=== PATIENT | female | born 1995 | race Caucasian/White ===

== ENCOUNTER 2017-12-27 16:52 | Emergency (ER) | payer OTHER, MEDICAID ==
--- NOTE | 2017-12-27 17:36 | EDPHY ---
H & P Stated Complaint: n/v/d Time Seen by Provider: 12/27/17 17:36 - Personal History LMP (Females 10-55): 8-14 Days Ago Current Tetanus/Diphtheria Vaccine: Yes Current Tetanus Diphtheria and Acellular Pertussis (TDAP): Yes - Medical/Surgical History Hx Asthma: No Hx Chronic Respiratory Disease: No Hx Diabetes: No Hx Cardiac Disease: No Hx Renal Disease: No Hx Cirrhosis: No Hx Alcoholism: No Hx HIV/AIDS: No Hx Splenectomy or Spleen Trauma: No Other PMH: ADHD, L foot surgery, - Social History Smoking Status: Never smoked Constitutional: Initial Vital Signs Temperature (C) 37.8 C 12/27/17 17:00 Heart Rate 97 12/27/17 17:00 Respiratory Rate 18 12/27/17 17:00 Blood Pressure 113/58 L 12/27/17 17:00 O2 Sat (%) 97 12/27/17 17:00 O2 Delivery Mode Room Air Allergies/Adverse Reactions: No Known Allergies Allergy (Unverified 12/27/17 17:00) Home Medications: Medication Instructions Recorded Leonor 12/27/17 Medical Decision Making ED Course/Re-evaluation: CHIEF COMPLAINT: Nausea vomiting diarrhea HISTORY OF PRESENT ILLNESS: Healthy 22-year-old female who has had 3 days worth of worsening nausea vomiting diarrhea. She did have a glucose tolerance test today before she got sick and sometimes she feels a bit ill the day of that test. The test was normal and she usually feels better the next day. She has had before. This time she had progressive nausea vomiting diarrhea. She has not been able to take in many calories and she feels dehydrated. She denies any urinary symptoms. She has some mild back pain but she thinks that may be from fever and diarrhea. She is generally quite healthy. She has no drug allergies. REVIEW OF SYSTEMS: A 10 point review of systems was performed and is negative with the exception of the elements mentioned in the history of present illness. PHYSICAL EXAM: HR, BP, O2 Sat, RR. Temp noted General Appearance: Alert, poorly hydrated mucous membranes, appropriate, and non-toxic appearing. Head: Atraumatic without scalp tenderness or obvious injury Eyes: Pupils equal, round, reactive to light and accommodation, EOMI, no trauma , no injection. Ears: Clear bilaterally, no perforation, normal landmarks Nose: Atraumatic, no rhinorrhea, clear. Throat: There is no erythema or exudates, no lesions, normal tonsils, mucus membranes moist. Neck: Supple, 2+ carotid upstroke, nontender, no lymphadenopathy. Respiratory: No retractions, no distress, no wheezes, and no accessory muscle use. Lungs are clear to auscultation bilaterally. Cardiovascular: Regular rate and rhythm, no murmurs, rubs, or gallops. Bilateral carotid, radial, dorsalis pedis, and posterior tibial pulses intact. Good capillary refill all extremities. Gastrointestinal: Abdomen is soft, nontender, non-distended, no masses, no rebound, no guarding, no peritoneal signs. Musculoskeletal: Normal active ROM of all extremities, atraumatic. Neurological: Alert, appropriate, and interactive. The patient has normal DTRs and non-focal cranial nerves, motor, sensory, and cerebellar exam. Skin: No rashes, good turgor, no nodules on palpation. Past medical history: None Past surgical history: None Family history: Noncontributory Social history: 22-year-old female who is a student, not , employed, does not abuse tobacco drugs or alcohol DIFFERENTIAL DIAGNOSIS: The differential diagnosis for the patient's nausea and vomiting included but was not limited to gastroenteritis, gastritis, appendicitis, and medication side effect. MEDICAL DECISION MAKING: This patient has nausea vomiting diarrhea fevers chills and some low back pain. She is somewhat dehydrated. She has a benign abdominal exam. I will perform laboratory studies including an i-STAT and a urinalysis including . We will give her Zofran IV fluids and ketorolac. Will start her on p.o. Trial. Patient has not had any diarrhea here. She has had no recent travel, antibiotic exposure, well water, raw foods. She is able to take p.o. And feels much better. We will discharge her with Zofran. 7:46 PM- The patient has passed her p.o. challenge. She feels ready to leave. I feel she is ready as well. - Data Points Laboratory Results: Laboratory Results 12/27/17 18:00 12/27/17 12/27/17 12/27/17 18:00 17:23 17:23 Sodium 139 mEq/L mEq/L (135-145) Potassium 4.1 mEq/L mEq/L (3.5-5.2) Chloride 100 mEq/L mEq/L (97-110) Carbon Dioxide 29 mEq/l mEq/l (22-31) Anion Gap 10 mEq/L mEq/L (8-16) BUN 12 mg/dL mg/dL (7-23) Creatinine 0.8 mg/dL mg/dL (0.6-1.0) Estimated GFR > 60 Glucose 81 mg/dL mg/dL (70-100) Calcium 9.2 mg/dL mg/dL (8.5-10.4) Urine Color YELLOW Urine Appearance HAZY Urine pH 5.0 (5.0-7.5) Ur Specific Bow 1.029 (1.002-1.030) Urine Protein NEGATIVE (NEGATIVE) Urine Ketones TRACE H (NEGATIVE) Urine Blood NEGATIVE (NEGATIVE) Urine Nitrate NEGATIVE (NEGATIVE) Urine Bilirubin NEGATIVE (NEGATIVE) Urine Urobilinogen 2.0 EU H EU (0.2-1.0) Ur Leukocyte Esterase NEGATIVE (NEGATIVE) Urine RBC 1-3 /hpf /hpf (0-3) Urine WBC 1-3 /hpf /hpf (0-3) Ur Epithelial Cells TRACE /lpf /lpf (NONE-1+) Urine Bacteria TRACE /hpf H /hpf (NONE SEEN) Urine Mucus 2+ /lpf H /lpf (NONE-1+) Urine Glucose NEGATIVE (NEGATIVE) Urine Test NEGATIVE Medications Given: Discontinued Medications Hydromorphone HCl (Dilaudid) 0.5 mg IVP EDNOW ONE Stop: 12/27/17 18:55 Last Admin: 12/27/17 19:06 Dose: 0.5 mg Sodium Chloride (Ns) 1,000 mls @ 0 mls/hr IV EDNOW ONE; Wide Open PRN Reason: Protocol Stop: 12/27/17 17:42 Last Admin: 12/27/17 18:01 Dose: 1,000 mls Sodium Chloride (Ns) 1,000 mls @ 0 mls/hr IV EDNOW ONE; Wide Open PRN Reason: Protocol Stop: 12/27/17 17:42 Last Admin: 12/27/17 18:02 Dose: 1,000 mls Ketorolac Tromethamine (Toradol) 30 mg IVP EDNOW ONE Stop: 12/27/17 17:42 Last Admin: 12/27/17 18:02 Dose: 30 mg Ondansetron HCl (Zofran) 4 mg IVP EDNOW ONE Stop: 12/27/17 17:42 Last Admin: 12/27/17 18:02 Dose: 4 mg Departure - Departure Disposition: Home, Routine, Self-Care Clinical Impression: Acute gastroenteritis, Dehydration, moderate Condition: Good Instructions: Dehydration (ED), Gastroenteritis (ED) Referrals: NONE *PRIMARY CARE P,. [Primary Care Provider] - As per Instructions Report Scribed for: Saurav Farooq Report Scribed by: Ling Flores Date of Report: 12/27/17 Time of Report: 19:48
[2017-12-27] MEDS ORDERED: ONDANSETRON 4 MG/2 ML VIAL IVP ONE (17:41)
[2017-12-27] MEDS ORDERED: NS 1,000 ML IV ONE ×2 (17:41)
[2017-12-27] MEDS ORDERED: KETOROLAC 30 MG/1 ML SDV IVP ONE (17:41)
[2017-12-27] MEDS ORDERED: HYDROmorphONE/DILAUDID 2 MG/ML INJ IVP ONE (18:54)
[2017-12-27 20:01] VITALS: BP 107/62
== END 2017-12-27 20:02 | disposition home or self-care (01) ==
DX: K52.9 Noninfective gastroenteritis and colitis, unspecified (principal); E86.0 Dehydration; E86.9 Volume depletion, unspecified
CPT/HCPCS: 96374; J1170; J1885; J2405